=== PATIENT | female | born 1940 | race African-American/Black ===

== ENCOUNTER 2024-11-05 16:35 | Emergency (ER) | payer OTHER ==
[2024-11-05] MEDS ORDERED: SODIUM BICARBONATE [ADULT] 8.4% 50 MEQ/50 ML SYRINGE IVP ONE (16:36)
[2024-11-05] MEDS ORDERED: EPINEPHrine 1:10,000 [1 MG/10 ML] SYRINGE IVP ONE (16:36)
== END 2024-11-05 21:00 ==
LOC: EMS 16:35
DX: I46.9 Cardiac arrest, cause unspecified (principal); J44.0 Chronic obstructive pulmonary disease with (acute) lower respiratory infection; J44.1 Chronic obstructive pulmonary disease with (acute) exacerbation
CPT/HCPCS: 31500; 92950; 99291; J0171; J3490